=== PATIENT | male | born 1980 | race Caucasian/White ===

== ENCOUNTER 2025-10-11 07:17 | Emergency (ER) | payer OTHER, SELFPAY ==
[2025-10-11 07:45] VITALS: BP 122/80; PULSE 90; RESP 16; TEMP 36.8; O2SAT 95; BMI 40.7
--- NOTE | 2025-10-11 08:01 | ED_ITS ---
HPI - General Adult General Chief complaint: Extremity Pain/Injury, Lower Stated complaint: R ankle pain/swelling, head pain Time Seen by Provider: 10/11/25 08:01 History of Present Illness HPI narrative: was in [place], rented electric scooters, the next day woke up with pain in R ankle, denies injury. once got home pain worse and swelling the size of softball. taking tylenol and ibuprofen. wearing an old cam walker and compression sock. throbbing won't stop. worried about ligaments and fractures. just took 2 tylenol while waiting. 45-year-old man presenting to the emergency department with complaint of right ankle pain and swelling. In [place] over [place], and [facility] specifically, a rented electric scooter is and spent a lot of time walking. Does have a history of left ankle sprain and problems. Has had foot problems over the years. looking at his footwear new balance with a red wing plantar fascia insole. historically has had problems left side with the surgery as well. From the plane his right ankle was the size of a softball. also a somewhat of a headache. Has taken acetaminophen, ibuprofen with food. Otherwise has been ricing his ankle. is not complaining of chest pain or shortness of breath. Related Data Previous Rx's ?Medication ?Instructions ?Recorded hydrocodone 5 mg-acetaminophen 325 1 - 2 tab PO Q4-6H PRN pain #12 10/11/25 mg tablet tabs indomethacin 50 mg capsule 50 mg PO TID #15 caps 10/11 Allergies Allergy/AdvReac Type Severity Reaction Status Date / Time Penicillins Allergy Intermediate hives Verified 10/11/25 07:51 Review of Systems Status of ROS: Reports: 6 or more systems reviewed and unremarkable except as noted in History and below [facility] Social History Smoking Status: Never smoker Do you use any of these nicotine containing products: None How often do you have a drink containing alcohol: monthly or less AUDIT-C Alcohol total score: 1 Non-prescribed substance use: denies use Exam Narrative: Exam Narrative: Pleasant. NAD but does appear uncomfortable. The right foot propped up on a pillow in the exam bed. moderately swollen. Also particularly tender about the lateral malleolus. Also the dorsal lateral foot. appears to have somewhat flatter arches. No erythematous changes really. On reexamination there might be a little bruising inferior to the lateral malleolus. Const: Vital Signs, click to edit/add: Vital Signs - 24 hr 10/11/25 07:45 Temperature 98.2 F Pulse Rate [Pulse Oximeter] 90 Respiratory Rate 16 Blood Pressure [Ri ght Upper Arm] 122/80 Pulse Oximetry 95 Oxygen Delivery Me thod Room Air Documenting provider has reviewed patient's vital signs: yes Course Vital Signs Vital signs: Initial Vital Signs Temperature 98.2 F 10/11/25 07:45 Temperature Source Temporal Artery Scan 10/11/25 07:45 Pulse Rate 90 10/11/25 07:45 Respiratory Rate 16 10/11/25 07:45 Blood Pressure 122/80 10/11/25 07:45 Blood Pressure Mean 94 10/11/25 07:45 Blood Pressure Position Sitting 10/11/25 07:45 Pulse Oximetry 95 10/11/25 07:45 Oxygen Delivery Method Room Air 10/11/25 07:45 Vital Signs Temperature 98.2 F 10/11/25 07:45 Pulse Rate 90 10/11/25 07:45 Respiratory Rate 16 10/11/25 07:45 Blood Pressure 122/80 10/11/25 07:45 Pulse Oximetry 95 10/11/25 07:45 Oxygen Delivery Method Room Air 10/11/25 07:45 Temperature 98.2 F 10/11/25 07:45 Pulse Rate 76 10/11/25 09:28 Respiratory Rate 19 10/11/25 09:28 Blood Pressure 138/111 H 10/11/25 09:28 Pulse Oximetry 94 10/11/25 09:28 Oxygen Delivery Method Room Air 10/11/25 09:28 Medications Administered Medications: Discontinued Medications Generic Name Dose Route Start Last Admin Trade Name Freq PRN Reason Stop Dose Admin Hydrocodone Bitart/Acetaminophen 2 tab 10/11/25 09:13 10/11/25 09:23 Hydrocodone-Acetamin 5-325 Mg 1 Tab PO 10/11/25 09:14 2 tab ONCE ONE Administration Medical Decision Making MDM Narrative Medical decision making narrative: This does appear to be a problem of the ankle; I would not have concerns of the venous thrombus for example. Does not have quite the amount of superficial pain I might associate with gout. No diagnosis of gout prior. I would suspect more some arthralgia but with significant and relatively rapid swelling, effusion contributing to pain. Might have some sort of spur or there could be an occult fracture that would warrant imaging. Might also image just to look for degree of arthritic change. I would suspect prone to some ankle discomfort considering anatomy otherwise but is taking precautions with better insoles. in addition to imaging would consider screening for gouty arthropathy. Three-view x-ray independently reviewed by me of the right ankle does show soft tissue swelling. I do not see any spurring. Maintaining mortise. I wonder if might have some evidence of talocalcaneal coalition with C sign. This would certainly predispose to pain. Might be an over call. I did call to discuss initial x-ray over-read with Radiology. See their read below. ADDENDUM Indication: Atraumatic right ankle swelling. Technique: Three views of the right ankle. Comparison: None. Findings: The ankle mortise is intact. No fracture or erosion. Joint spaces are normal. Soft tissue swelling is present Impression: Soft tissue swelling without acute fracture. Dictated by Fabio Uribe MD @ 10/11/2025 8:40:25 AM ----- ADDENDUM ----- Addendum: Upon further review the lateral radiograph may demonstrate a subtle C sign which can be seen in the setting of talocalcaneal coalition. A CT could be performed for further evaluation if clinically indicated. Case discussed with Dr. Norris at approximately 8:50 a.m. on 10/11/2025. Dictated by Fabio Uribe MD @ Oct 11 2025 8:53AM (Electronically Signed) For Patients: As a result of the 21st Century Cures Act, medical imaging exams and procedure reports are released immediately into your electronic medical record. You may view this report before your referring provider. If you have questions, please contact your health care provider. Indication: Atraumatic right ankle swelling. Technique: Three views of the right ankle. Comparison: None. Findings: The ankle mortise is intact. No fracture or erosion. Joint spaces are normal. Soft tissue swelling is present Impression: Soft tissue swelling without acute fracture. Dictated by Fabio Uribe MD @ 10/11/2025 8:40:25 AM Labs otherwise do not seem to indicate at least typical gouty arthropathy. See patient discharge plan for further discussion considering the recurrent problems or having with your ankles, maybe it is time to see Orthopedics. Locally you can call phone number [phone]. Were also including disc of your images to take with you for any follow-up should he choose to go elsewhere. I am not convinced this is gouty but we are checking some Related labs. I will call you if they are abnormal. I think this is likely overuse related. I do think you would benefit from an assessment for some proper orthotics. You could also try SOLE brand or Superfeet. 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 and prescribing some indomethacin as anti-inflammatory that I would like you to take 3 times daily over the next 5 days. Also some [place] for the throbbing pain you are experiencing if still present. continue to ice and elevate. Take these Fuad wraps with you. Lab Data Lab results reviewed: Yes I reviewed the patient's lab results Labs: Lab Results 10/11/25 Range/Units 09:23 Sodium 136 (135-149) mmol/L Potassium 4.5 (3.6-5.1) mmol/L Chloride 101 (96-114) mmol/L Carbon Dioxide 27 (20-32) mmol/L Anion Gap 8 (7-15) mEq/L BUN 14 (5-24) mg/dL Creatinine 1.0 (0.5-1.5) mg/dL Estimated Creat Clear 102.39 Estimated GFR 95 ml/min Glucose 104 (60-115) mg/dL Uric Acid 7.1 (2.2-8.4) mg/dL Calcium 9.2 (8.4-10.6) mg/dL Discharge Plan Discharge Clinical Impression: Ankle arthralgia, Acute ankle pain, Ankle swelling Patient Disposition: Home w/ Parent or Adult Condition: Stable Additional Instructions: considering the recurrent problems or having with your ankles, maybe it is time to see Orthopedics. Locally you can call phone number [phone]. Were also including disc of your images to take with you for any follow-up should he choose to go elsewhere. I am not convinced this is gouty but we are checking some Related labs. I will call you if they are abnormal. I think this is likely overuse related. I do think you would benefit from an assessment for some proper orthotics. You could also try SOLE brand or Superfeet. 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 and prescribing some indomethacin as anti-inflammatory that I would like you to take 3 times daily over the next 5 days. Also some [place] for the throbbing pain you are experiencing if still present. continue to ice and elevate. Take these Fuad wraps with you. Prescriptions: New indomethacin 50 mg capsule 50 mg PO TID Qty: 15 0RF Rx Instructions: administer with food or milk hydrocodone-acetaminophen 5-325 mg tablet 1 - 2 tab PO Q4-6H PRN (Reason: pain) Qty: 12 0RF Follow Up/Referrals: [facility] [Primary Care Provider, Family Practice] Stand Alone Forms: MyHealth Info Instructions
--- NOTE | 2025-10-11 08:12 | CRLHL7_ITS ---
For Patients: As a result of the Cures Act, medical imaging exams and procedure reports are released immediately into your electronic medical record. You may view this report before your referring provider. If you have questions, please contact your health care provider. Indication: Atraumatic right ankle swelling. Technique: Three views of the right ankle. Comparison: None. Findings: The ankle mortise is intact. No fracture or erosion. Joint spaces are normal. Soft tissue swelling is present Impression: Soft tissue swelling without acute fracture. Dictated by Fabio Uribe MD @ 10/11/2025 8:40:25 AM (Electronically Signed)
--- OUTSIDE RECORDS SUMMARY | 2025-10-11 08:33 | XMS_ITS | Clinical Summary ---
Author Organization [facility] Address [address] [place] [id number] Care Team Providers Care Residential Sales Associate Name Role Phone Pcp, No Primary Care Provider Unavailabl e Allergies Active AllergyReactionsCriticalityNoted DateCommentsPenicillinsHives,Rash 01/07/2011 Medications MedicationSigDispense QuantityRefillsLast FilledStart DateEnd DateStatus multivitamin-folic acid 0.4 mg (MEN'S MULTI-VITAMIN) tablet Take 1 tablet by mouth once daily.ctive Active Problems ProblemNoted DateDiagnosed EmrjXthmeib58/06/2012 Resolved Problems ProblemNoted DateDiagnosed DateResolved DateLipoma of abdominal wall09/23/2012 10/14/2012 Family History Medical HistoryRelationNameCommentsOtherMotherglaucomaRelationNameStatusComments Mother Social History Tobacco UseTypesPacks/DayYears UsedDateSmoking Tobacco: NeverSmokeless Tobacco: Never Tobacco Cessation:Counseling Given: No Alcohol UseStandard Drinks/WeekCommentsYes0 (1 standard drink = 0.6 oz pure alcohol)sociallySex and Gender InformationValueDate RecordedSex Assigned at BirthNot on fileLegal XjzGcog1610/26/2012 8:04 AM CSTGender IdentityNot on file Sexual OrientationNot on file Last Filed Vital Signs Vital SignReadingTime TakenCommentsBlood Rskxjskc045/8007 2:42 PM CDT Umcts8870 2:42 PM DZTSgkvbiujduf53.9 ??C (98.4 ??F)04/06/2013 3:07 PM CDTRespiratory Zmqj535301/15/2013 5:43 PM CDTOxygen Ijnzglfhkt74%01/15/2013 5:43 PM CDTInhaled Oxygen Concentration--Ertvij324 kg (258 lb)05/04/2013 2:42 PM CDT Vhuzhc374.3 cm (5' 11)05/04/2013 2:42 PM CDTBody Mass Index35.98005/04/2013 2:42 PM CDT Plan of Treatment Health MaintenanceDue DateLast DoneCommentsDepression screening for age 12+ 1992HIV for age 15-BMI (ht and wt on same day) for age 18+ 1998Hepatitis C screening for age 18-Hepatitis B series for 19+ (1 of 3 - 19+ 3-dose series)1999HPV series for age 9-45 (1 - 3-dose SCDM series)2007Tetanus szuvxin61/12/COVID-19 vaccine series ( - 2024- season)2025Influenza Vaccine (#1)2025olonoscopy through age 7508/25/2025Lipids for age 45-Pneumococcal series for age 6-49Aged OutNo longer eligible based on patient's age to complete this topic Insurance Advance Directives * Full Code (Latest Code Status on File) Date ActivatedDate VdqdncmzcukFaxqwzzc82/17/2012 8:33 AM09/28/2012 1:06 PM Care Teams Team MemberRelationshipSpecialtyStart DateEnd Date Diandra Baker PCP - General12/06/16
--- OUTSIDE RECORDS SUMMARY | 2025-10-11 08:33 | XMS_ITS | Clinical Summary ---
Author Organization [place] Address [address] [facility] [place] [address] Care Team Providers Care Glost Tile Shader Name Role Phone Best [place] PA-C Primary Care Provider [phone] Best [place] PA-C Unavailable Thomas Gomes PA-C Unavailable [phone] Allergies Active AllergyReactionsCriticalityNoted PslsMfwadauhCcynrtlstfqQurm93/11/2006 ZztfpaugvwlccJdeth14/03/2020 Medications MedicationSigDispense QuantityRefillsLast FilledStart DateEnd DateStatus indomethacin (INDOCIN) 50 MG capsule Indications:Acute idiopathic gout of right kneeTake 1 capsule (50 mg) by mouth 3 times daily (with meals). 21 capsule 07/07/2024ctive Active Problems ProblemNoted DateDiagnosed DateOSA (obstructive sleep apnea)09/27/2024Morbid obesity, unspecified obesity type06/25/2017CARDIOVASCULAR SCREENING; LDL GOAL LESS THAN 6484008/12/2010Weight loss09/27/2009Gout07/24/2008 Resolved Problems ProblemNoted DateDiagnosed DateResolved DateLeft ankle injury, zhcyrcq1304/11/2022 06/12/2022 Immunizations ImmunizationAdministration DatesNext DueCOVID-19 MONOVALENT 12+ (Pfizer) 09/11/2021Hepatitis B, Adult (Energix-B/Recombivax HB)11/14/2023Influenza (intradermal)07/16/2012,08/21/2011Influenza Vaccine >6 months,quad, PF/ ,07/23/2019TD,PF 7+ (Tenivac)01/22/2010,12/12/1999TDAP (Adacel,Boostrix) 06/11/2021TDAP Vaccine (Boostrix)01/22/2010 Family History Medical HistoryRelationCommentsParkinsonismFatherFamily History NegativeMaternal GrandfatherFamily History NegativeMaternal GrandmotherEye DisorderMotherGlaucoma Family History NegativePaternal GrandfatherFamily History NegativePaternal GrandmotherCancer - colorectalNo family hx ofProstate CancerNo family hx of RelationStatusCommentsFatherAliveMaternal GrandfatherMaternal GrandmotherMother AlivePaternal GrandfatherPaternal GrandmotherSon 1AliveSon 2AliveSon 3Alive Social History Tobacco UseTypesPacks/DayYears UsedDateSmoking Tobacco: NeverSmokeless Tobacco: Never Tobacco Cessation:Counseling Given: Not Answered Alcohol UseStandard Drinks/WeekCommentsYes0 (1 standard drink = 0.6 oz pure alcohol)maybe 1-2 times per monthSocial Connection and Isolation PanelAnswerDate RecordedFrequency of Communication with Friends and FamilyNot on file11/14/2023 How often do you get together with friends or relatives?Never11/14/2023ttends [facility] ServicesNot on file11/14/2023ctive Member of Clubs or Organizations Not on file11/14/2023ttends Club or Organization MeetingsNot on file11/14/2023 Marital StatusNot on file11/14/2023HQ-2AnswerDate RecordedPHQ-2 Score0 09/27/2024[facility] - Occupational Stress QuestionnaireAnswerDate RecordedDo you feel stress - tense, restless, nervous, or anxious, or unable to sleep at night because yourmind is troubled all the time - these days?Only a nfupoc1011/14/2023Exercise Vital SignAnswerDate Recorded On average, how many days per week do you engage in moderate to strenuous exercise (like a brisk walk)?3 days11/14/2023On average, how many minutes do you engage in exercise at this level?60 min11/14/2023dolescent EducationAnswerDate RecordedGetting School Help NeededNot on file07/06/2023Food InsecurityAnswerDate RecordedWithin the past 12 months, did you worry that your food would run out before you got money to buy more?No11/14/2023Within the past 12 months, did the food you bought just not last and you didn???t have money to getmore?No 11/14/2023Housing StabilityAnswerDate RecordedDo you have housing? (Housing is defined as stable permanent housing and does not include staying outside in a car, in a tent, in an abandoned building, in an overnight long-term, or couch-surfing.)Yes11/14/2023re you worried about losing your housing?No 11/14/2023Financial Resource StrainAnswerDate RecordedWithin the past 12 months, have you or your family members you live with been unable to get utilities (heat, electricity) when it was really needed?No11/14/2023Transportation Needs AnswerDate RecordedWithin the past 12 months, has lack of transportation kept you from medical appointments, getting your medicines, non-medical meetings or appointments, work, or from getting things that you need?No11/14/2023 Interpersonal SafetyAnswerDate RecordedDo you feel physically and emotionally safe where you currently live?Yes11/14/2023Within the past 12 months, have you been hit, slapped, kicked or otherwise physically hurt by someone?No11/14/2023 Within the past 12 months, have you been humiliated or emotionally abused in other ways by your partner or ex-partner?No11/14/2023Sex and Gender Information ValueDate RecordedSex Assigned at BirthNot on fileLegal BrgKuli99/04/2012 3:10 AM CSTGender IdentityNot on fileSexual OrientationNot on fileOccupationIndustry Job Start DateJob End Datereceiving dockNot on fileNot on fileNot on file Last Filed Vital Signs Vital SignReadingTime TakenCommentsBlood Vmvfjwfk479/8111/14/2023 7:05 AM STAMP PRESS OPERATOR Insbt413011/14/2023 7:05 AM DHAXxwrnjxtajc95.6 ??C (97.8 ??F)11/14/2023 7:05 AM CSTRespiratory Zvrz274411/14/2023 7:05 AM CSTOxygen Azitqyqugi22%11/14/2023 7:05 AM CSTInhaled Oxygen Concentration--Zpcbku288.5 kg (312 lb)09/27/2024 2:30 PM OMJAseidb286.8 cm (5' 10)09/27/2024 2:30 PM CSTBody Mass Index44.7709/27/2024 2:30 PM STAMP PRESS OPERATOR Plan of Treatment Health MaintenanceDue DateLast DoneCommentsCT JKDBTIWKWWWD1980FIT 1980FLEX SIG1980DNA (Cologuard)1980 7308BDICXMVVCZN58/13/1990 COLORECTAL CANCER KWICPJFAS10/13/1990HEPATITIS B VACCINE (2 of 3 - 19+ 3-dose series)/HQ-2 (once per calendar year), 11/14/2023, 06/11/2021, Additional history existsANNUAL REVIEW OF HM ORDERS , 06/11/2021YEARLY PREVENTIVE VISIT, 06/11/2021, 06/25/2017, Additional history existsCOVID-19 VACCINE ( season), 12/29/2020, 12/10/2020INFLUENZA VACCINE (#1) , 07/23/2019, 07/16/2012, Additional history existsDIABETES JJBJSHFZZ71, 06/11/2021, 06/25/2017, Additional history exists ADVANCE CARE IABZMUXB21, 06/11/2021, 06/11/2021 (Declined) LIPID, 06/11/2021, 06/25/2017, Additional history exists ZOSTER VACCINE (1 of 2)2030DTAP/TDAP/TD VACCINE (4 - Td or Tdap)06/11/2031 06/11/2021, 01/22/2010, 01/22/2010, Additional history existsHEPATITIS C GJRVOUKVRFlrpelmol58/30/2021HIV BNNAPYKASGkzfgwbte75/30/2021HPV VACCINE (No Doses Required)CompletedMENINGITIS VACCINEAged OutNo longer eligible based on patient's age to complete this topicPNEUMOCOCCAL VACCINE: PEDIATRICS (0 to 5 YEARS) AND AT-RISK PATIENTS (6 to 49 YEARS)Aged OutNo longer eligible based on patient's age to complete this topic Procedures Procedure NamePriorityDate/TimeAssociated DiagnosisCommentsCOMPREHENSIVE METABOLIC EOGXJCyegnoy57/02/2024 7:44 AM STAMP PRESS OPERATOR Morbid obesity, unspecified obesity type (H) LIPID REFLEX TO DIRECT LDL HUYTYZlataqu99/02/2024 7:44 AM STAMP PRESS OPERATOR CARDIOVASCULAR SCREENING; LDL GOAL LESS THAN 160 HIV ANTIGEN ANTIBODY XUSAZKieginu38/30/2021 9:54 AM CDT Screening for HIV (human immunodeficiency virus) HEPATITIS C SCREEN REFLEX TO HCV RNA QUANT AND BJXVJFPMHziggil53/30/2021 9:54 AM CDT Need for hepatitis C screening test from Last 3 Months or Most Recently Relevant to Health Maintenance Results * (ABNORMAL) Lipid panel reflex to direct LDL Fasting (11/14/2023 7:44 AM STAMP PRESS OPERATOR) ComponentValueRef RangeTest MethodAnalysis TimePerformed AtPathologist JhggiznfrBxqmiivcwze229<200 mg/dL11/14/2023 7:40 PM CST[facility] LAB[facility]AT[facility] Injskiwpthhne795(H)<150 mg/dL11/14/2023 7:40 PM CSTUU LABORATORYDirect Measure HDL38(L)>=40 mg/dL11/14/2023 7:40 PM CSTUU LABORATORYLDL Cholesterol Wqprkmgzhz599(H)<=100 mg/dL11/14/2023 7:40 PM CSTUU LABORATORYNon HDL Yzmhficywgu259(H)<130 mg/dL11/14/2023 7:40 PM CSTUU LABORATORYPatient Fasting > 8hrs?Yes11/14/2023 7:40 PM CSTUU LABORATORYSpecimen (Source)Anatomical Location / LateralityCollection Method / VolumeCollection TimeReceived Time BloodBLOOD SPECIMEN / UnknownVenipuncture / Kapvgjf2011/14/2023 7:44 AM STAMP PRESS OPERATOR 11/14/2023 7:44 AM STAMP PRESS OPERATOR Narrative LABORATORY - 11/14/2023 7:40 PM STAMP PRESS OPERATOR Cholesterol Desirable: <200 mg/dL Triglycerides Normal: ??Less than 150 mg/dL Borderline High: ??150-199 mg/dL High: ??200-499 mg/dL Very High: ??Greater than or equal to 500 mg/dL Direct Measure HDL Female: ??Greater than or equal to 50 mg/dL Male: ??Greater than or equal to 40 mg/dL LDL Cholesterol Desirable: <100mg/dL Above Desirable: ??100-129 mg/dL Borderline High: ??130-159 mg/dL High: ??160-189 mg/dL Very High: >= 190 mg/dL Non HDL Cholesterol Desirable: ??130 mg/dL Above Desirable: ??130-159 mg/dL Borderline High: ??160-189 mg/dL High: ??190-219 mg/dL Very High: ??Greater than or equal to 220 mg/dL Authorizing ProviderResult TypeResult StatusDasachin ESPARZA - BLOOD ORDERABLESFinal ResultPerforming OrganizationAddressCity/State/ZIP CodePhone Number LABORATORY [facility] Core Lab [address] [facility], [address] [address], [place] [phone] * Comprehensive metabolic panel (BMP + Alb, Alk Phos, ALT, AST, Total. Bili, TP) (11/14/2023 7:44 AM STAMP PRESS OPERATOR)ComponentValueRef RangeTest MethodAnalysis Time Performed AtPathologist NjmedfazwOqcnxw811166 - 145 mmol/L11/14/2023 7:40 PM CSTUU LABORATORYComment:Reference intervals for this test were updated on 07/08/2023 to more accurately reflect our healthypopulation. There may be differences in the flagging of prior results with similar values performedwith this method. Interpretation of those prior results can be made in the context of the updated reference intervals.Potassium4.43.4 - 5.3 mmol/L11/14/2023 7:40 PM CSTUU LABORATORYCarbon Dioxide (CO2)2422 - 29 mmol/L11/14/2023 7:40 PM STAMP PRESS OPERATOR UU LABORATORYAnion Wdz617 - 15 mmol/L11/14/2023 7:40 PM CSTUU LABORATORYUrea Wlfndcql41.36.0 - 20.0 mg/dL11/14/2023 7:40 PM CST[facility] LABORATORYCreatinine0.92 0.67 - 1.17 mg/dL11/14/2023 7:40 PM CSTUU LABORATORYGFR Estimate>90>60 mL/min/1.66l09611/14/2023 7:40 PM CSTUU LABORATORYCalcium9.38.6 - 10.0 mg/dL 11/14/2023 7:40 PM CSTUU UJOVJTLVXIYpcxmonf87677 - 107 mmol/L11/14/2023 7:40 PM CSTUU UEBHFRIWYPZohzgki9994 - 99 mg/dL11/14/2023 7:40 PM [facility] Alkaline Xltkufukgoi1584 - 150 U/L11/14/2023 7:40 PM CSTUU LABORATORYComment: Reference intervals for this test were updated on 08/26/2023 to more accurately reflect our healthypopulation. There may be differences in the flagging of prior results with similar values performedwith this method. Interpretation of those prior results can be made in the context of the updated reference intervals.AVY312 - 45 U/L11/14/2023 7:40 PM [facility] Comment:Reference intervals for this test were updated on 03/24/2023 to more accurately reflect our healthy population. There may be differences in the flagging of prior results with similar values performed with this method. Interpretation of those prior results can be made in the context of the updated reference intervals.XJM059 - 70 U/L11/14/2023 7:40 PM [facility] Comment:Reference intervals for this test were updated on 03/24/2023 to more accurately reflect our healthy population. There may be differences in the flagging of prior results with similar values performed with this method. Interpretation of those prior results can be made in the context of the updated reference intervals.Protein Total7.56.4 - 8.3 g/dL11/14/2023 7:40 PM CST[facility] LABORATORYAlbumin4.33.5 - 5.2 g/dL11/14/2023 7:40 PM [facility] Bilirubin Total0.4<=1.2 mg/dL11/14/2023 7:40 PM CSTUU LABORATORYSpecimen (Source)Anatomical Location / LateralityCollection Method / VolumeCollection TimeReceived TimeBloodBLOOD SPECIMEN / UnknownVenipuncture / Iakdjtn9911/14/2023 7:44 AM CST11/14/2023 7:44 AM STAMP PRESS OPERATOR Narrative Authorizing ProviderResult TypeResult StatusDasachin Cristofer JANNIE-CLAB - BLOOD ORDERABLESFinal ResultPerforming OrganizationAddressCity/State/ZIP CodePhone Number LABORATORY [facility] [place] [facility] Lab [address] [facility], [address] [place] [address], [place] [phone] * HIV Antigen Antibody Combo (06/11/2021 9:54 AM CDT)ComponentValueRef RangeTest MethodAnalysis TimePerformed AtPathologist SignatureHIV Antigen Antibody Combo NtdsvsusxhqFvxmsozztkb54/30/2021 9:56 PM CDTUU [facility] COREComment:HIV- 1 p24 Ag & HIV-1/HIV-2 Ab Not DetectedSpecimen (Source)Anatomical Location / LateralityCollection Method / VolumeCollection TimeReceived TimeBloodSTRUCTURE OF RIGHT HAND / UnknownVenipuncture / Sffsbhb1306/11/2021 9:54 AM CDT06/11/2021 9:55 AM CDT Narrative Authorizing ProviderResult TypeResult StatusBest [place] JANNIE-CLAB - BLOOD ORDERABLESFinal ResultPerforming OrganizationAddressCity/State/ZIP CodePhone Number [facility] CORE [facility] Specialty Core Lab [address] [facility], [address] [place] [address], [place] [phone] * Hepatitis C Screen Reflex to HCV RNA Quant and Genotype (06/11/2021 9:54 AM CDT)ComponentValueRef RangeTest MethodAnalysis TimePerformed AtPathologist SignatureHepatitis C EkidxqtyLigffmdgpbuOeefidrqybl77/30/2021 9:56 PM CDTUU [facility] CORESpecimen (Source)Anatomical Location / LateralityCollection Method / VolumeCollection TimeReceived TimeBloodSTRUCTURE OF RIGHT HAND / UnknownVenipuncture / Yohrxsg5706/11/2021 9:54 AM CDT06/11/2021 9:55 AM CDT Narrative [facility] - 06/11/2021 9:56 PM CDT Assay performance characteristics have not been established for newborns, infants, and children. Authorizing ProviderResult TypeResult StatusDasachin ESPARZA - BLOOD ORDERABLESFinal ResultPerforming OrganizationAddressCity/State/ZIP CodePhone Number [facility] SPECIALTY [facility] Specialty Core Lab [address] [facility], [address] [place] [address], [place] [phone] from Last 3 Months or Most Recently Relevant to Health Maintenance Insurance * Guarantor: Maxx Brady TypeRelation to PatientDate of BirthPhone Billing AddressPersonal/[address] [place] [address] * Guarantor: Maxx Brady TypeRelation to PatientDate of BirthPhone Billing AddressPersonal/[address] [place] [address] Care Teams Team MemberRelationshipSpecialtyStart DateEnd Best Cleveland PA-C [address] [id number] PCP - [facility]06/11/21 Best [place] PA-C [address] [id number] Assigned PCP06/17/21 Thomas Gomes PA-C [address] [place] [address] [address] [id number] Assigned Neuroscience Provider03/04/24
[2025-10-11] MEDS: HYDROCODONE-ACETAMIN 5-325 MG 1 TAB 2 TAB PO (09:23)
[2025-10-11 09:28] VITALS: BP 138/111; PULSE 76; RESP 19; O2SAT 94
[2025-10-11 09:41] LABS: Chloride* 101 mmol/L (96-114); Sodium* 136 mmol/L (135-149)
[2025-10-11 09:42] LABS: Potassium* 4.5 mmol/L (3.6-5.1)
[2025-10-11 09:45] LABS: Anion Gap 8 mEq/L (7-15); Blood Urea Nitrogen* 14 mg/dL (5-24); Calcium* 9.2 mg/dL (8.4-10.6); Carbon Dioxide* 27 mmol/L (20-32); Creatinine* 1.0 mg/dL (0.5-1.5); Est. Creatinine Clearance* 102.39; Estimated Glomerular Filt Rate 95 ml/min; Glucose* 104 mg/dL (60-115)
== END 2025-10-11 09:43 | disposition home or self-care (01) ==
PROVIDERS: Emergency Provider Family Medicine; PCP Physician Assistant
DX: M25.571 Pain in right ankle and joints of right foot (principal); R22.41 Localized swelling, mass and lump, right lower limb; X50.9XXA Other and unspecified overexertion or strenuous movements or postures, initial encounter
CPT/HCPCS: 36415; 73610; 80048; 84550; 99283; 99284; A9270